=== PATIENT | male | born 1990 | race Two or more races ===

== ENCOUNTER 2016-11-05 16:22 | Emergency (ER) | payer OTHER | END 2016-11-05 16:51 | disposition home or self-care (01) | LOC: ED 16:22 | DX: S39.012A Strain of muscle, fascia and tendon of lower back, initial encounter (principal); M54.2 Cervicalgia; V43.52XA Car driver injured in collision with other type car in traffic accident, initial encounter; Y92.411 Interstate highway as the place of occurrence of the external cause ==